=== PATIENT | male | born 1975 | race Caucasian/White ===

== ENCOUNTER 2022-11-08 20:42 | Emergency (ER) | payer OTHER ==
[~2022-11-08] VITALS: Ht 182.9 cm; Wt 81.7 kg
[2022-11-08 21:08] VITALS: BP 166/96
[2022-11-08 21:52] LABS: BASOPHILS ABSOLUTE AUTO 0.05 K/mm3 (0.00-0.23); BASOPHILS PERCENT AUTO 1 % (0-2); EOSINOPHILS ABSOLUTE AUTO 0.09 K/mm3 (0.00-0.68); EOSINOPHILS PERCENT AUTO 1 % (0-6); Hematocrit 49.6 % (37.0-53.0); Hemoglobin 16.8 g/dL (13.5-17.5); IMMATURE GRAN ABSOLUTE AUTO 0.04 K/mm3 (0.00-0.10); IMMATURE GRAN PERCENT AUTO 1 % (0-1); LYMPHOCYTES ABSOLUTE AUTO 1.29 K/mm3 (0.84-5.20); LYMPHOCYTES PERCENT AUTO 20 % (21-46); MONOCYTES ABSOLUTE AUTO 0.77 K/mm3 (0.16-1.47); MONOCYTES PERCENT AUTO 12 % (4-13); Mean Corpuscular HGB 31.6 pg (26.0-34.0); Mean Corpuscular HGB Conc 33.9 g/dL (31.5-36.5); Mean Corpuscular Volume 93 fL (80-100); Mean Platelet Volume 9.8 fL (9.1-12.4); NEUTROPHILS ABSOLUTE AUTO 4.32 K/mm3 (1.96-9.15); NEUTROPHILS PERCENT AUTO 66 % (41-73); Platelet Count 176 K/mm3 (150-400); RDW Coefficient Variation 12.7 % (11.7-14.2); RDW Standard Deviation 43.6 fL (35.1-46.3); Red Blood Cell Count 5.31 M/mm3 (4.30-5.90); White Blood Cell Count 6.56 K/mm3 (4.00-11.30)
[2022-11-08 22:10] LABS: Albumin, Blood 4.2 g/dL (3.4-5.0); Bilirubin, Total 0.3 mg/dL (0.1-1.0); Bun/Creatinine Ratio 17.7 (12.0-20.0); Calcium, Blood 9.8 mg/dL (8.5-10.1); Creatinine, Blood 0.85 mg/dL (0.60-1.20); Potassium, Blood 4.7 mmol/L (3.5-5.5); Total Protein, Blood 8.2 g/dL (6.4-8.2)
[2022-11-08 23:35] LABS: Source, Urine Clean Catch
[2022-11-08 23:40] LABS: Bilirubin, Urine Neg (Neg); Blood, Urine Neg (Neg); Glucose Qualitative, Urine Neg (Neg); Ketones, Urine Neg (Neg); Leukocyte Esterase, Urine Neg (Neg); Nitrite, Urine Neg (Neg); Protein, Urine Neg (Neg); Urobilinogen, Urine NORM (Normal); pH, Urine 6.5 (5.0-8.0)
[2022-11-08 23:41] LABS: Appearance, Urine Clear (Clear); Color, Urine Pale Yellow (P-Yellow)
== END 2022-11-09 00:52 | disposition home or self-care (01) ==
LOC: ER 20:42
PROVIDERS: Student in an Organized Health Care Education/Training Program
DX: K76.0 Fatty (change of) liver, not elsewhere classified (principal)
CPT/HCPCS: 74176; 80053; 81003; 82140; 83690; 85025; 99284-25

== ENCOUNTER 2023-03-16 11:42 | Emergency (ER) | payer OTHER ==
[~2023-03-16] VITALS: Ht 182.9 cm; Wt 77.1 kg
[2023-03-16 12:15] LABS: BASOPHILS ABSOLUTE AUTO 0.03 K/mm3 (0.00-0.23); BASOPHILS PERCENT AUTO 0 % (0-2); EOSINOPHILS ABSOLUTE AUTO 0.17 K/mm3 (0.00-0.68); EOSINOPHILS PERCENT AUTO 2 % (0-6); Hematocrit 46.4 % (37.0-53.0); IMMATURE GRAN ABSOLUTE AUTO 0.03 K/mm3 (0.00-0.10); IMMATURE GRAN PERCENT AUTO 0 % (0-1); LYMPHOCYTES ABSOLUTE AUTO 1.78 K/mm3 (0.84-5.20); LYMPHOCYTES PERCENT AUTO 25 % (21-46); MONOCYTES PERCENT AUTO 11 % (4-13); Mean Corpuscular HGB 32.9 pg (26.0-34.0); Mean Corpuscular HGB Conc 34.5 g/dL (31.5-36.5); Mean Corpuscular Volume 95 fL (80-100); Mean Platelet Volume 9.8 fL (9.1-12.4); NEUTROPHILS PERCENT AUTO 61 % (41-73); Platelet Count 201 K/mm3 (150-400); RDW Coefficient Variation 12.2 % (11.7-14.2); RDW Standard Deviation 43.3 fL (35.1-46.3); Red Blood Cell Count 4.87 M/mm3 (4.30-5.90); White Blood Cell Count 7.11 K/mm3 (4.00-11.30)
[2023-03-16 12:32] LABS: Albumin, Blood 3.5 g/dL (3.4-5.0); Albumin/Globulin Ratio 0.9 (0.8-1.8); Bilirubin, Total 0.7 mg/dL (0.1-1.0); Bun/Creatinine Ratio 13.2 (12.0-20.0); Calcium, Blood 8.8 mg/dL (8.5-10.1); Creatinine, Blood 0.76 mg/dL (0.60-1.20); Globulin, Blood 3.8 g/dL (2.2-4.0); Potassium, Blood 4.4 mmol/L (3.5-5.5); Total Protein, Blood 7.3 g/dL (6.4-8.2)
[2023-03-16 15:00] VITALS: BP 130/81
[2023-03-16] MEDS ORDERED: AMOCLA875 PO (15:50)
[2023-03-16] MEDS ORDERED: Percocet 5-3251 EACH PO (15:50)
== END 2023-03-16 16:33 | disposition home or self-care (01) ==
LOC: ER 11:42
PROVIDERS: Student in an Organized Health Care Education/Training Program
DX: L03.113 Cellulitis of right upper limb (principal); W55.01XA Bitten by cat, initial encounter
CPT/HCPCS: 73120; 80053; 85025; 96365; 96375; 99283-25; J0696; J1885